=== PATIENT | female | born 1940 | race Caucasian/White ===

== ENCOUNTER → 2019-10-19 | Outpatient (REF) | payer MEDICARE, OTHER | LOC: M LAB LCGH 15:02 | PROVIDERS: ATTEND Physician Assistant | DX: D23.30 Other benign neoplasm of skin of unspecified part of face (principal) ==

== ENCOUNTER → 2021-10-09 | Outpatient (REF) | payer MEDICARE, BC, OTHER | LOC: M LAB REF 14:35 | PROVIDERS: ATTEND Physician Assistant | DX: L90.0 Lichen sclerosus et atrophicus (principal) ==

== ENCOUNTER → 2022-02-19 | Outpatient (REF) | payer MEDICARE, BC, OTHER | LOC: M SFHCDERM 17:34 | PROVIDERS: ATTEND Physician Assistant | DX: L82.1 Other seborrheic keratosis (principal) ==

== ENCOUNTER → 2023-04-08 | Outpatient (REF) | payer MEDICARE, BC, OTHER | LOC: M LAB REF 17:56 | PROVIDERS: ATTEND Ophthalmology | DX: H02.824 Cysts of left upper eyelid (principal) ==

== ENCOUNTER → 2023-07-15 | Outpatient (REF) | payer MEDICARE, BC | LOC: M SFHCDERM 14:16 | PROVIDERS: ATTEND Physician Assistant | DX: D04.71 Carcinoma in situ of skin of right lower limb, including hip (principal) ==

== ENCOUNTER → 2023-11-23 | Outpatient (CLI) | payer MEDICARE, BC ==
[2023-11-23 12:00] LABS: BASO % 0.3 % (0.0-1.0); EOS # 0.1 10^3/uL (0.0-0.5); EOS % 1.9 % (0.0-3.0); HEMATOCRIT 42.7 % (36.0-47.0); HEMOGLOBIN 13.7 g/dl (12.0-15.5); LYMPH # 1.2 10^3/uL (1.5-5.0); LYMPH % 38.3 % (24.0-44.0); MEAN CORPUSCULAR HEMOGLOBIN 25.4 pg (27.0-33.0); MEAN CORPUSCULAR HGB CONC 32.1 g/dl (32.0-36.5); MEAN CORPUSCULAR VOLUME 79.1 fl (80.0-96.0); MONO # 0.3 10^3/uL (0.0-0.8); MONO % 9.3 % (2.0-8.0); NEUTROPHILS # 1.6 10^3/uL (1.5-8.5); NEUTROPHILS % 50.2 % (36.0-66.0); PLATELET COUNT, AUTOMATED 225 10^3/uL (150-450); WHITE BLOOD COUNT 3.1 10^3/uL (4.0-10.0)
[2023-11-23 12:02] LABS: RHEUMATOID FACTOR QUANT < 3.5 IU/ML (<14)
[2023-11-23 12:03] LABS: ALBUMIN 3.7 G/DL (3.2-5.2); ALKALINE PHOSPHATASE 112 U/L (46-116); ALT/SGPT 27 U/L (7.0-40); AST/SGOT 29 U/L (<34); BILIRUBIN,TOTAL 0.5 MG/DL (0.3-1.2); BLOOD UREA NITROGEN 20 MG/DL (9-23); CALCIUM LEVEL 8.5 MG/DL (8.3-10.6); CARBON DIOXIDE LEVEL 30 MMOL/L (20-31); CHLORIDE LEVEL 105 MMOL/L (98-107); CREATININE FOR GFR 0.75 MG/DL (0.55-1.30); GLOMERULAR FILTRATION RATE > 60.0 (>32); GLUCOSE, FASTING 91 MG/DL (74-106); POTASSIUM SERUM 4.3 MMOL/L (3.5-5.1); SODIUM LEVEL 139 MMOL/L (136-145); TOTAL PROTEIN 6.6 G/DL (5.7-8.2)
[2023-11-23 12:04] LABS: ERYTHROCYTE SEDIMENTATION RATE 26 mm/hr (0-30); THYROID STIMULATING HORMONE 1.384 uIU/ML (0.55-4.78); VITAMIN B12 LEVEL 689 PG/ML (211-911)
[2023-11-23 12:05] LABS: FOLATE > 24.0 NG/ML (>5.4)
[2023-11-23 12:12] LABS: HEMOGLOBIN A1c 5.4 % (4.0-6.0)
== END ==
LOC: M LAB 10:07
PROVIDERS: ATTEND Psychiatry & Neurology Neurology
DX: I63.9 Cerebral infarction, unspecified (principal); G45.9 Transient cerebral ischemic attack, unspecified; Z79.899 Other long term (current) drug therapy